=== PATIENT | male | born 1965 | race Caucasian/White ===

== ENCOUNTER 2017-08-14 17:36 | Inpatient (IN) | payer OTHER ==
[~2017-08-14] VITALS: Ht 177.8 cm; Wt 84.6 kg
[2017-08-14 21:30] LABS: BASOPHILS # (AUTO) 0.1 X10'3 (0-0.2); BASOPHILS % (AUTO) 0.7 % (0-1); EOSINOPHILS # (AUTO) 0.4 X10'3 (0-0.9); EOSINOPHILS % (AUTO) 3.3 % (0-6); HEMATOCRIT 47.3 % (42.0-52.0); HEMOGLOBIN 16.4 g/dl (14.0-17.9); LYMPHOCYTES # (AUTO) 2.8 X10'3 (1.1-4.8); LYMPHOCYTES % (AUTO) 24.6 % (21-51); MEAN CORPUSCULAR HEMOGLOBIN 31.5 PG (27.0-31.0); MEAN CORPUSCULAR HGB CONC 34.6 % (33.0-36.5); MEAN CORPUSCULAR VOLUME 90.9 FL (78-98); MEAN PLATELET VOLUME 7.8 FL (7.4-10.4); MONOCYTES # (AUTO) 0.6 X10'3 (0-0.9); MONOCYTES % (AUTO) 5.6 % (2-12); NEUTROPHILS # (AUTO) 7.5 X10'3 (1.8-7.7); NEUTROPHILS % (AUTO) 65.8 % (42-75); PLATELET COUNT 245 X10'3 (140-440); RED BLOOD COUNT 5.21 X10'6 (4.70-6.10); RED CELL DISTRIBUTION WIDTH 12.9 % (11.5-14.5); WHITE BLOOD COUNT 11.4 X10'3 (4.5-11.0)
[2017-08-14] MEDS ORDERED: iohexol 350MG/ML 100ml bottle IV ONE (21:35)
[2017-08-14 21:38] LABS: PARTIAL THROMBOPLASTIN TIME 26 SECONDS (22-32); PROTHROMBIN TIME 10.6 SECONDS (9.0-12.0)
[2017-08-14 21:49] LABS: ALANINE AMINOTRANSFERASE 34 U/L (12-78); ALBUMIN 4.2 G/DL (3.4-5.0); ALBUMIN/GLOBULIN RATIO 1.3 (1.1-1.5); ALKALINE PHOSPHATASE 69 IU/L (46-116); ANION GAP 13 (8-16); ASPARTATE AMINO TRANSFERASE 20 U/L (10-37); BILIRUBIN,TOTAL 0.6 MG/DL (0.1-1.0); BLOOD UREA NITROGEN 23 MG/DL (7-18); BUN/CREATININE RATIO 18.4 (5.4-32.0); CALCIUM 9.2 MG/DL (8.5-10.1); CHLORIDE 105 MMOL/L (99-107); CREATININE 1.25 MG/DL (0.60-1.10); GLUCOSE 110 MG/DL (70-104); POTASSIUM 3.6 MMOL/L (3.5-5.1); SODIUM 144 MMOL/L (135-145); TOTAL CARBON DIOXIDE 26.3 MMOL/L (24-32); TOTAL PROTEIN 7.5 G/DL (6.4-8.2); eGFR 60 ML/MIN
[2017-08-14] MEDS ORDERED: LOSA1TAB9 PO (23:23)
[2017-08-14] MEDS ORDERED: AMLO-93 PO (23:23)
[2017-08-14] MEDS ORDERED: METO50TA7 PO (23:23)
[2017-08-15] MEDS ORDERED: normal saline 1000ml 1,000 ML IV SCH (01:37)
[2017-08-15] MEDS ORDERED: HYDROcodone/acetaminophen 10/325mg tab PO PRN (01:40)
[2017-08-15] MEDS ORDERED: diphenhydrAMINE 50 mg/ml inj IV PRN (01:40)
[2017-08-15] MEDS ORDERED: mag hydrox/Alum hydrox/simeth 30ml oral suspension PO PRN (01:40)
[2017-08-15] MEDS ORDERED: morphine 4 MG/ML inj SYRINge IV PRN ×2 (01:40)
[2017-08-15] MEDS ORDERED: HYDROmorphone inj. 0.5 MG/0.5 ML DISP.SYRIN IV PRN ×2 (01:40)
[2017-08-15] MEDS ORDERED: acetaminophen 650mg rectal suppository RC PRN (01:40)
[2017-08-15] MEDS ORDERED: acetaminophen 325mg tablet PO PRN (01:40)
[2017-08-15] MEDS ORDERED: ondansetron/PF 4mg/2ml inj IV PRN (01:40)
[2017-08-15] MEDS ORDERED: diphenhydrAMINE 25mg capsule PO PRN (01:40)
[2017-08-15] MEDS ORDERED: metoclopramide 5 mg/ml inj IV PRN (01:40)
[2017-08-15] MEDS ORDERED: HYDROcodone/acetaminophen 5mg/325mg tablet PO PRN (01:40)
[2017-08-15] MEDS ORDERED: bisacodyl 10mg suppository rectal RC PRN (01:40)
[2017-08-15] MEDS ORDERED: magnesium hydroxide 30ml (MOM) UD suspension PO PRN (01:40)
[2017-08-15 02:04] LABS: LIPASE 195 U/L (73-393)
[2017-08-15 03:47] LABS: HEMOGLOBIN A1C 5.2 % (4.5-6.2)
[2017-08-15 03:55] LABS: MAGNESIUM 2.2 MG/DL (1.5-2.4)
[2017-08-15] MEDS ORDERED: non-formulary drug (Amlodipine Besylate/Benazepril 5/40 MG* (Amlodipine-Benazepril 5/40 MG PO SCH (08:00)
[2017-08-15] MEDS: pantoprazole 40 MG vial IV SCH (09:02)
[2017-08-15] MEDS: lisinopril 20mg tablet PO SCH (09:04)
[2017-08-15] MEDS: amLODIPine 5mg tablet PO SCH (09:05)
[2017-08-15] MEDS: losartan 50mg tablet PO SCH (09:05)
[2017-08-15] MEDS: HYDROchlorothiazide 12.5mg capsule PO SCH (09:05)
[2017-08-15] MEDS: metoprolol succinate 25mg (24-HOUR) SR. Tablet PO SCH (09:05)
[2017-08-15 16:44] VITALS: BP 141/88
[2017-08-15 19:30] VITALS: BP 136/87
[2017-08-15] MEDS ORDERED: temazepam 15mg capsule PO PRN (21:00)
[2017-08-16] VITALS: BP 117/86
[2017-08-16 05:53] LABS: BASOPHILS % (AUTO) 0.3 % (0-1); EOSINOPHILS # (AUTO) 0.5 X10'3 (0-0.9); EOSINOPHILS % (AUTO) 5.8 % (0-6); HEMATOCRIT 41.1 % (42.0-52.0); HEMOGLOBIN 14.6 g/dl (14.0-17.9); LYMPHOCYTES # (AUTO) 2.4 X10'3 (1.1-4.8); LYMPHOCYTES % (AUTO) 26.1 % (21-51); MEAN CORPUSCULAR HEMOGLOBIN 32.2 PG (27.0-31.0); MEAN CORPUSCULAR HGB CONC 35.6 % (33.0-36.5); MEAN CORPUSCULAR VOLUME 90.4 FL (78-98); MEAN PLATELET VOLUME 7.7 FL (7.4-10.4); MONOCYTES # (AUTO) 0.7 X10'3 (0-0.9); MONOCYTES % (AUTO) 7.5 % (2-12); NEUTROPHILS # (AUTO) 5.6 X10'3 (1.8-7.7); NEUTROPHILS % (AUTO) 60.3 % (42-75); PLATELET COUNT 202 X10'3 (140-440); RED BLOOD COUNT 4.54 X10'6 (4.70-6.10); RED CELL DISTRIBUTION WIDTH 12.9 % (11.5-14.5); WHITE BLOOD COUNT 9.3 X10'3 (4.5-11.0)
[2017-08-16 06:17] LABS: ALANINE AMINOTRANSFERASE 24 U/L (12-78); ALBUMIN 3.3 G/DL (3.4-5.0); ALBUMIN/GLOBULIN RATIO 1.2 (1.1-1.5); ALKALINE PHOSPHATASE 59 IU/L (46-116); ANION GAP 9 (8-16); ASPARTATE AMINO TRANSFERASE 14 U/L (10-37); BILIRUBIN,TOTAL 0.6 MG/DL (0.1-1.0); BLOOD UREA NITROGEN 22 MG/DL (7-18); CALCIUM 8.6 MG/DL (8.5-10.1); CHLORIDE 106 MMOL/L (99-107); CHOLESTEROL 149 MG/DL (0-200); CREATININE 1.22 MG/DL (0.60-1.10); GLUCOSE 101 MG/DL (70-104); HDL CHOLESTEROL 37 MG/DL (35-60); LDL CHOLESTEROL 97 MG/DL (50-100); POTASSIUM 3.5 MMOL/L (3.5-5.1); SODIUM 143 MMOL/L (135-145); TOTAL CARBON DIOXIDE 27.7 MMOL/L (24-32); TOTAL PROTEIN 6.1 G/DL (6.4-8.2); TRIGLYCERIDES 120 MG/DL (20-135); eGFR 62 ML/MIN
[2017-08-16] MEDS: metoprolol succinate 25mg (24-HOUR) SR. Tablet PO SCH (08:06)
[2017-08-16] MEDS: HYDROchlorothiazide 12.5mg capsule PO SCH (08:07)
[2017-08-16] MEDS: amLODIPine 5mg tablet PO SCH (08:07)
[2017-08-16] MEDS: losartan 50mg tablet PO SCH (08:07)
[2017-08-16] MEDS: lisinopril 20mg tablet PO SCH (08:07)
[2017-08-16] MEDS: pantoprazole 40 MG vial IV SCH (08:07)
[2017-08-16 11:00] VITALS: BP 136/91
[2017-08-16 20:00] VITALS: BP 123/81
[2017-08-16] MEDS ORDERED: HYDROmorphone 2mg tablet PO PRN (20:10)
[2017-08-17] VITALS: BP 116/77
[2017-08-17 06:09] LABS: BASOPHILS % (AUTO) 0.3 % (0-1); EOSINOPHILS # (AUTO) 0.5 X10'3 (0-0.9); EOSINOPHILS % (AUTO) 5.3 % (0-6); HEMATOCRIT 41.7 % (42.0-52.0); HEMOGLOBIN 14.8 g/dl (14.0-17.9); LYMPHOCYTES # (AUTO) 2.3 X10'3 (1.1-4.8); LYMPHOCYTES % (AUTO) 24.6 % (21-51); MEAN CORPUSCULAR HEMOGLOBIN 32.1 PG (27.0-31.0); MEAN CORPUSCULAR HGB CONC 35.4 % (33.0-36.5); MEAN CORPUSCULAR VOLUME 90.6 FL (78-98); MEAN PLATELET VOLUME 7.9 FL (7.4-10.4); MONOCYTES # (AUTO) 0.7 X10'3 (0-0.9); MONOCYTES % (AUTO) 7.2 % (2-12); NEUTROPHILS % (AUTO) 62.6 % (42-75); PLATELET COUNT 223 X10'3 (140-440); RED CELL DISTRIBUTION WIDTH 12.9 % (11.5-14.5); WHITE BLOOD COUNT 9.5 X10'3 (4.5-11.0)
[2017-08-17 06:40] LABS: ALANINE AMINOTRANSFERASE 30 U/L (12-78); ALBUMIN 3.5 G/DL (3.4-5.0); ALBUMIN/GLOBULIN RATIO 1.1 (1.1-1.5); ALKALINE PHOSPHATASE 58 IU/L (46-116); ANION GAP 11 (8-16); ASPARTATE AMINO TRANSFERASE 17 U/L (10-37); BILIRUBIN,TOTAL 0.6 MG/DL (0.1-1.0); BLOOD UREA NITROGEN 21 MG/DL (7-18); CALCIUM 8.7 MG/DL (8.5-10.1); CHLORIDE 106 MMOL/L (99-107); CREATININE 1.31 MG/DL (0.60-1.10); GLUCOSE 94 MG/DL (70-104); POTASSIUM 3.3 MMOL/L (3.5-5.1); SODIUM 144 MMOL/L (135-145); TOTAL CARBON DIOXIDE 26.7 MMOL/L (24-32); TOTAL PROTEIN 6.6 G/DL (6.4-8.2); eGFR 57 ML/MIN
[2017-08-17 06:51] VITALS: BP 126/85
[2017-08-17] MEDS ORDERED: pantoprazole 40mg Tablet.DR PO SCH (07:30)
[2017-08-17] MEDS: HYDROchlorothiazide 12.5mg capsule PO SCH (08:08)
[2017-08-17] MEDS: metoprolol succinate 25mg (24-HOUR) SR. Tablet PO SCH (08:08)
[2017-08-17] MEDS: lisinopril 20mg tablet PO SCH (08:08)
[2017-08-17] MEDS: losartan 50mg tablet PO SCH (08:08)
[2017-08-17] MEDS: amLODIPine 5mg tablet PO SCH (08:08)
[2017-08-17] MEDS ORDERED: potassium chloride 8mEq ER tablet PO SCH (10:15)
[2017-08-17 11:00] VITALS: BP 127/86
[2017-08-17] MEDS ORDERED: AMLO10TA PO (11:39)
[2017-08-17] MEDS ORDERED: LISI-600 PO (11:39)
[2017-08-17] MEDS ORDERED: HYDR12.5 PO (11:39)
[2017-08-17] MEDS ORDERED: PANT40TA4 PO (11:39)
== END 2017-08-17 13:40 | disposition home or self-care (01) | DRG 201 ==
LOC: ER 17:37 → ED HOLD 08-15 01:37 → MED 3N 08-15 16:43
PROVIDERS: ADMIT Family Medicine; ATTEND Family Medicine
PROC: B2261ZZ Computerized Tomography (CT Scan) of Right and Left Heart using Low Osmolar Contrast (ICD-10-PCS; principal; 2017-08-14)
DX: J93.83 Other pneumothorax (principal); E78.5 Hyperlipidemia, unspecified; I10 Essential (primary) hypertension; R07.89 Other chest pain; K21.9 Gastro-esophageal reflux disease without esophagitis; Z90.49 Acquired absence of other specified parts of digestive tract; Z72.89 Other problems related to lifestyle; Z79.899 Other long term (current) drug therapy; Z88.8 Allergy status to other drugs, medicaments and biological substances; I16.0 Hypertensive urgency
CPT/HCPCS: 36415; 71045; 71275; 80053; 80061; 82948; 83036; 83690; 83735; 83880; 84484; 85025; 85610; 85730; 87070; 93005; 93308; 99285; C9113; J7030; Q9967

== ENCOUNTER 2025-03-25 09:05 | Emergency (ER) | payer BC ==
[~2025-03-25 09:05] MED LIST: AMLO10TA PO; HYDR12.5 PO; LISI20TA28 PO; METO50TA7 PO; PANT40TA54 PO
== END 2025-03-25 09:49 | disposition left against medical advice (07) ==
LOC: ER 09:05
DX: Z00.00 Encounter for general adult medical examination without abnormal findings (principal); Z53.21 Procedure and treatment not carried out due to patient leaving prior to being seen by health care provider

== ENCOUNTER 2025-03-26 13:11 | Emergency (ER) | payer BC ==
[~2025-03-26] VITALS: Ht 182.9 cm; Wt 72.9 kg
[2025-03-26 13:14] VITALS: BP 152/102; PULSE 92; RESP 16; TEMP 98; O2SAT 98
--- NOTE | 2025-03-26 13:17 | Physician Documentation ---
History of Present Illness ~ Stated Complaint: RABIES VACCINE Time Seen by MD: 13:14 OK to notify your PCP?: Yes Primary Medical Doctor: dr theresa prado Source: patient Mode of Arrival: POV Exam Limitations: no limitations HPI Presents for rabies vaccination. He was vaccinated 3 days ago here and received immunoglobulin after a possible exposure. Denies any symptoms. Tetanus within 5 years?: No Medication Reconciliation Allergies: Coded Allergies: pseudoephedrine (Verified Allergy, Unknown, 03/26/25) Scheduled Amlodipine Besylate (Amlodipine Besylate), 1 TABLET PO DAILY Hydrochlorothiazide (Hydrochlorothiazide), 12.5 MG PO DAILY Lisinopril (Lisinopril), 40 MG PO Q24H Metoprolol Succinate* (Toprol Xl*), 1 TAB PO DAILY, (Reported) Pantoprazole Sodium (Pantoprazole Sodium), 40 MG PO BKF Past Medical History Past Medical History: Hypertension Past Surgical History: cholecystectomy Alcohol Use: Heavy Drug Use: none Review of Systems All Other Systems at this time: Reviewed and Negative Physical Exam Vital Signs: RN Vital Signs have been reviewed: Yes Pulse Oximetry Reflects: adequate oxygenation Physical Exam General: Alert, no distress. HEENT: No injection, moist mucous membranes. Neck: Full range of motion. Respiratory: No respiratory distress, equal chest rise and fall. Chest: No accessory muscle use. Cardiovascular: Regular rate and rhythm. Gastrointestinal: Nondistended. Extremities: Normal range of motion, no deformity. Neurologic: Oriented x4. Psychiatric: Normal mood and affect. Skin: Normal color, warm and dry. Progress Results/Orders Reviewed/noted all lab results: Yes Results/Orders Completed Orders - KATRINA SUAREZ PLASTER MIXER Rabies Vaccine (Pcec)/Pf (Rabavert Rabie (03/26/25 13:15) Vital Signs 03/26/25 13:14 Temp 98.0 Pulse 92 Resp 16 B/P (MAP) 152/102 Pulse Ox 98 O2 Flow Rate 0 Medical Decision Making Additional information obtaine: old records Findings Needs the rabies vaccine kit, ordered. Initial vaccines were administered on 03/23/2025 by us. We discussed that he will return on day 7 which will be 03/30/2025. Differential Dx:Considerations: Include: Abscess, Cellulitis, Dressing change, Healing wound Departure Disposition: 01 HOME / SELF CARE / HOMELESS Impression: Primary Impression: Rabies vaccine administered Additional Impression: Dog bite Condition: Stable Additional Instructions: Please return for vaccination at day 7 which would be on 03/30/2025. Referrals: NO PRIMARY CARE PROVIDER (PCP) Education Educated: Patient Educated regarding: diagnosis, treatment, prognosis, need for follow up Additional Comment Medical Screen Exam This patient recieved a medical screening examination. After reviewing the individual's medical complaints with presenting symptoms and performing an appro priate physical examination, it was determined that no immediate life- threatening emergency medical condition is present. This individual is also not a women having contractions. Signature Scribe Signature: . Attestation: Scribed for Katrina Suarez Blood Tester by Katrina Davison NP . 03/26/25 13:57 Parts of this note were created using [employer] voice recognition software program. While efforts were made to correct any mistakes made by this voice recognition software program, nonsensical phrases may remain in this note. In addition, there may be errors and syntax, grammar, content and spelling. KATRINA SUAREZ PLASTER MIXER Mar 26, 2025 13:17
== END 2025-03-26 13:59 | disposition home or self-care (01) ==
LOC: ER 13:12
DX: Z20.3 Contact with and (suspected) exposure to rabies (principal); Z23 Encounter for immunization; I10 Essential (primary) hypertension; F10.90 Alcohol use, unspecified, uncomplicated; Z88.8 Allergy status to other drugs, medicaments and biological substances; Z90.49 Acquired absence of other specified parts of digestive tract; W54.0XXA Bitten by dog, initial encounter; Y93.89 Activity, other specified; Y92.89 Other specified places as the place of occurrence of the external cause; Y99.8 Other external cause status; Y90.9 Presence of alcohol in blood, level not specified
CPT/HCPCS: 90471; 90675; 99282